=== PATIENT | female | born 1990 | race Caucasian/White ===

== ENCOUNTER 2021-04-06 05:58 | Inpatient (IN) | payer MEDICAID ==
[2021-04-06] VITALS (66 sets, daily range): BP systolic 86–124; BP diastolic 50–86; PULSE 56–102; TEMP 97.7–98.6
[~2021-04-06] VITALS: Ht 157.5 cm; Wt 71.4 kg
--- NOTE | 2021-04-06 06:05 | NUR ---
Patient arrives ambulatory with mother for scheduled induction of labor. Patient reports occasional mild contractions, denies ROM or vaginal bleeding, and reports normal movement. Admission orders verified with Dr. Varghese. Patient changes into gown, EFM explained and placed. VS obtained. Reviewed plan of care for induction with patient. Patient agrees to plan and denies questions. 0625- IV started in LFA, labs obtained. LR infusing per protocol. Assessment completed. Consents explained and signed. Patient denies questions. 0640- Patient up to bathroom, UDS explained and collected per protocol. Sent to lab. 0702- Reactive, category 1 FHR strip obtained. Reviewed Pitocin administration with patient, patient agrees and denies questions. Pitocin started at 2 mU per protocol and order.
[2021-04-06] MEDS ORDERED: PROFERRIN ES12 MG PO (06:49)
[2021-04-06] MEDS ORDERED: UNISOM25 MG PO (06:49)
[2021-04-06] MEDS ORDERED: COLACE 100100 MG/CAP PO (06:49)
[2021-04-06] MEDS ORDERED: TYLENOL 325MG325 MG PO (06:50)
[2021-04-06 07:15] LABS: BASO # 0.1 (0.0-0.2); BASO % 0.7 % (0.0-2.0); EOS # 0.1 (0.0-0.7); GRAN # 7.9 (1.4-6.5); GRAN % 66.5 % (42.2-75.2); HEMOGLOBIN 12.3 g/dl (12.5-16.0); LYMPH # 2.7 (1.2-3.4); LYMPH % 22.4 % (20.0-51.0); MEAN CELL VOLUME 91 fl (80.0-100.0); MEAN CORPUSCULAR HEMOGLOBIN 31 pg (27.0-31.0); MEAN CORPUSCULAR HGB CONC 34 g/dl (33.0-37.0); MEAN PLATELET VOLUME 10.8 fl (7.4-10.4); MONO % 8.7 % (1.7-9.3); PLATELET COUNT 285 K/mm3 (130-400); RED BLOOD COUNT 3.98 M/mm3 (4.10-5.30); REDCELL DISTRIBUTION WIDTH-CV 13.8 % (11.5-14.5)
[2021-04-06 07:19] LABS: HEMATOCRIT 36.2 % (37.0-47.0); TRICYCLIC ANTIDEPRESS URINE NEGATIVE
--- NOTE | 2021-04-06 11:03 | NUR ---
Patient repositioning to birthing ball again. [place] adjusted.
[2021-04-07] VITALS (20 sets, daily range): BP systolic 96–153; BP diastolic 52–76; PULSE 63–108; TEMP 97.7–98.8
--- NOTE | 2021-04-07 00:20 | NUR ---
0020- DR. SANCHES AND THIS RN TO BEDSIDE FOR SVE AND EVALUATION. PATIENT COMPLETE AND READY TO PRACTICE PUSH. THIS RN SETS UP ROOM AND DISCUSSES PUSHING WITH PATIENT. 0030- FIRST PUSH. THIS RN REMAINS AT BEDSIDE AND PUSHES WITH PATIENT WITH EVERY CONTRACTION. PATIENT AND FHR TOLERATING WELL. 0120- PATIENT TAKES A BREAK SHE IS SICK, PUKING. THIS RN HELPS PATIENT CLEAN UP AND BEGIN PUSHING AGAIN. 0130- UQIROZ REMOVED WITH 250 OUTPUT NOTED. PATIENT TOLERATED WELL. DR. SANCHES TO BEDSIDE TO EVALUATE PUSHING. THIS RN REMAINS AT BEDSIDE. DR. SANCHES STEPS AWAY TO GET THINGS READY PATIENT IS CLOSE. 0135- DR. SANCHES BACK TO BESIDE. THIS RN AND DR. SANCHES BREAK DOWN BED AND PREP ROOM FOR DELIVERY. THIS RN CALLS NURSERY NURSE FOR DELIVERY. 0152- OF VIABLE MALE INFANT. INFANT PLACED TO MOTHER ABDOMEN WHERE NURSERY NURSE ASSUMES CARE AT THIS TIME. CORD CLAMPED AND CUT AND NURSERY NURSE TOOK INFANT TO WARMER FOR ASSESSMENT. PITOCIN TURNED OFF AT THIS POINT. 0155- OF PLACENTA. PITOCIN TURNED BACK ON PER PROTOCOL AT 333ML/HR. FUNDUS MASSAGED BY THIS RN. MODERATE AMOUNT OF FREE FLOW NOTED WITH FUNDUS NOT FIRMING UP VERY WELL. PROVIDER GAVE VERBAL ORDER TO GET METHERGINE FOR PATIENT. 0159- METHERGINE GIVEN IM TO LEFT THIGH. FUNDUS FIRMING UP. 2ND DEGREE TEAR NOTED AND REPAIRED BY PROVIDER. 0210- REPAIRS DONE, EBL NOTED TO BE 200 BY PROVIDER. FUNDUS FIRM AND DOWN 1. PATIENT AND ROOM CLEANED UP, VITALS STABLE. RECOVERY STARTED.
--- NOTE | 2021-04-07 13:08 | NUR ---
ELLE recieved referral for HX of substance use. ELLE staffed with patients nurse and met with patient in the room. Patient reports that she last used 4 months ago and decide to stop. Patient repots that she resides with her grandmother in [place]. Patient indicated that her GM Ezekiel and Mother Giselle are supports to her and . No pcp for self or baby indicated that she is still deciding. Patient indicated that she uses [facility] for RX and does not have any concern with taking baby home. Patient reports this is her first child and the FOB is not in the picture at this time. Patient indicated that she will bottle feed and has supplies including new car seat. Both Mother and BB at this time are neg waiting on BCR. No report made, NF.
--- NOTE | 2021-04-07 15:26 | NUR ---
1240 VOIDS DONE. IV DISCONTINUED. PT REQUESTS TO TAKE A WALK AND GO OUTSIDE. 1250 PT LEFT UNIT WITH SISTER. 1320 PT BROUGHT BACK TO UNIT IN A WHEELCHAIR BY SISTER. PT STATES HER BACK WAS STARTING TO HURT. 1400 PT SHOWERED.
--- NOTE | 2021-04-07 18:20 | NUR ---
Report recieved. Refused bedside shift report. Woke at this time and requested ice packs and ice water. returned to room. Whiteboard updated. Requested motrin, administered. POC reviewed. Reports that she has decided to have the infant's father come to the hospital to sign the certificate. Patient states, "I only want him to sign the certificate. I do not want him to see the baby."
[2021-04-08 06:30] VITALS: BP 97/71; PULSE 76; TEMP 97.5
--- NOTE | 2021-04-08 06:30 | NUR ---
Pt reports she is having pelvic floor pain, 0/10 when not moving but when walking to the bathroom 8/10. Also complains of pain to right arm, most likely due to B/P cuff and labor. Updated on the plan of care for the day. Pt would like to go home today if possible.
[2021-04-08] MEDS ORDERED: IBU600 MG PO (09:10)
--- NOTE | 2021-04-16 16:20 | NUR ---
Patient's infant's cord blood was negative for illegal drugs in system.
== END 2021-04-08 12:55 | disposition home or self-care (01) | DRG 806 ==
LOC: LDR 05:58 → OB 08:43
PROVIDERS: ADMIT Obstetrics & Gynecology
PROC: 10E0XZZ Delivery of Products of Conception, External Approach (ICD-10-PCS; principal; 2021-04-06)
PROC: 0KQM0ZZ Repair Perineum Muscle, Open Approach (ICD-10-PCS; 2021-04-06)
PROC: 3E033VJ Introduction of Other Hormone into Peripheral Vein, Percutaneous Approach (ICD-10-PCS; 2021-04-06)
DX: O48.0 Post-term pregnancy (principal); O99.323 Drug use complicating pregnancy, third trimester; Z37.0 Single live birth; Z3A.40 40 weeks gestation of pregnancy; O99.344 Other mental disorders complicating childbirth; F32.9 Major depressive disorder, single episode, unspecified; O70.1 Second degree perineal laceration during delivery; O99.334 Smoking (tobacco) complicating childbirth; F17.210 Nicotine dependence, cigarettes, uncomplicated; F12.90 Cannabis use, unspecified, uncomplicated; Z59.0 Homelessness
CPT/HCPCS: J2210; J2405; J2590; J7120